=== PATIENT | male | born 1985 | race Caucasian/White ===

== ENCOUNTER 2021-02-03 20:01 | Emergency (ER) | payer BC, OTHER ==
[2021-02-03 20:36] LABS: HEMOGLOBIN 16.1 gm/dl (14.0-17.5); RED BLOOD COUNT 4.74 M/UL (4.20-5.50); WHITE BLOOD COUNT 7.7 K/UL (4.5-11.0)
[2021-02-03 20:50] LABS: BUN/CREATININE RATIO 22 (0-10)
== END 2021-02-03 22:25 | disposition home or self-care (01) ==
LOC: ER1 20:01
PROVIDERS: Family Medicine
DX: R00.2 Palpitations (principal)
CPT/HCPCS: 71045; 80053; 82550; 82553; 83874; 84439; 84443; 84484; 85025; 93005; 99285